=== PATIENT | female | born 1970 | race Two or more races ===

== ENCOUNTER → 2018-01-31 | Outpatient (CLI) | payer BC ==
--- NOTE | 2018-01-31 16:18 | RADIOLOGY REPORT (SQ) ---
EXAM DESCRIPTION: NM HIDA SCAN WITH CCK COMPLETED DATE/TIME: 01/31/2018 4:03 pm REASON FOR STUDY: RUQ PAIN (R10.11) R10.11 RIGHT UPPER QUADRANT PAIN COMPARISON: ULTRASOUND RADIONUCLIDE AND DOSE: DOSAGE RADIONUCLIDE: 5.4 millicuries Tc99m Mebrofenin. DOSAGE CCK: 1.5 micrograms. DOSAGE MORPHINE: Not required. The route of agent administration: Intravenous TECHNIQUE: Serial imaging right upper quadrant up to 60 minutes following injection of radionuclide. CCK injected after gallbladder visualized. LIMITATIONS: None. FINDINGS: LIVER: Normal visualization without areas of photopenia. INTRAHEPATIC BILE DUCTS: Normal visualization. COMMON BILE DUCT: Normal dilatation. GALLBLADDER: Normal visualization. Calculated ejection fraction of 48%. Normal range is greater th an 35%. PHYSICAL RESPONSE: Patients presenting complaint was reproduced. OTHER: No other significant finding. IMPRESSION: NO CYSTIC OR COMMON DUCT OBSTRUCTION. NORMAL GALLBLADDER EJECTION FRACTION. POSITIVE FOR BILIARY DYSKINESIS. TECHNICAL DOCUMENTATION: JOB ID: [id number] [employer]- All Rights Reserved Reading location - IP/workstation name: [email or web address]
== END ==
LOC: RAD 12:55
PROVIDERS: ATTEND Family Medicine
DX: R10.11 Right upper quadrant pain (principal)
CPT/HCPCS: 78227; J2805; A9537; Q9969

== ENCOUNTER → 2018-01-31 | Outpatient (CLI) | payer BC ==
[2018-01-31 13:23] LABS: ABSOLUTE BASOPHILS # (AUTO) 0.1 10^3/uL (0.0-0.2); ABSOLUTE EOSINOPHILS # (AUTO) 0.3 10^3/uL (0.0-0.6); ABSOLUTE LYMPHOCYTES (AUTO) 2.3 10^3/uL (0.5-4.7); ABSOLUTE MONOCYTES (AUTO) 0.7 10^3/uL (0.1-1.4); BASOPHILS % (AUTO) 1.3 % (0-2); EOSINOPHILS % (AUTO) 4.5 % (0-6); HEMOGLOBIN 13.9 g/dL (12.0-15.5); LYMPHOCYTES % (AUTO) 31.3 % (13-45); MEAN CORPUSCULAR HGB CONC 33.1 g/dL (32.0-36.0); MEAN CORPUSCULAR VOLUME 85 fl (80-97); MONOCYTES % (AUTO) 9.2 % (3-13); PLATELET COUNT 422 10^3/uL (150-450); RED BLOOD COUNT 4.97 10^6/uL (3.72-5.28); RED CELL DISTRIBUTION WIDTH 14.7 % (11.5-14.0); SEGMENTED NEUTROPHILS % (AUTO) 53.7 % (42-78); TOTAL CELLS COUNTED % (AUTO) 100 %; WHITE BLOOD COUNT 7.5 10^3/uL (4.0-10.5)
[2018-01-31 13:53] LABS: ALANINE AMINOTRANSFERASE 44 U/L (9-52); ALBUMIN 4.2 g/dL (3.5-5.0); ALKALINE PHOSPHATASE 76 U/L (38-126); AMYLASE 68 U/L (30-110); ANION GAP 10 (5-19); ASPARTATE AMINO TRANSFERASE 36 U/L (14-36); BILIRUBIN,DIRECT 0.2 mg/dL (0.0-0.4); BILIRUBIN,TOTAL 0.6 mg/dL (0.2-1.3); BLOOD UREA NITROGEN 13 mg/dL (7-20); CALCIUM 9.7 mg/dL (8.4-10.2); CARBON DIOXIDE 30 mmol/L (22-30); CHLORIDE 102 mmol/L (98-107); GAMMA-GLUTAMYL TRANSFERASE 26 U/L (8-78); GLUCOSE 87 mg/dL (75-110); LIPASE 254.9 U/L (23-300); SODIUM 141.5 mmol/L (137-145); TOTAL PROTEIN 7.2 g/dL (6.3-8.2)
[2018-01-31 13:55] LABS: C-REACTIVE PROTEIN < 5.0 mg/L (<10.0)
[2018-01-31 14:02] LABS: ERYTHROCYTE SEDIMENTATION RATE 8 mm/hr (0-20)
[2018-02-04 13:53] LABS: HELICOBACTER PYLORI IGA AB <9.0 units (0.0-8.9); HELICOBACTER PYLORI IGG AB <0.80 (0.00-0.79); HELICOBACTER PYLORI IGM AB <9.0 units (0.0-8.9)
== END ==
LOC: OD 12:18
PROVIDERS: ATTEND Family Medicine
DX: R10.9 Unspecified abdominal pain (principal)
CPT/HCPCS: 36415; 80053; 82150; 82977; 83690; 85025; 85652; 86140; 86677

== ENCOUNTER 2020-06-06 08:08 | Day surgery (SDC) | payer BC ==
[~2020-06-06 08:08] MED LIST: PROPOFOL INJ 200 MG/20 ML VIAL IV ONE
--- NOTE | 2020-06-06 10:16 | Operative Report ---
Operative Report DATE OF SURGERY: 06/06/20 Operative Report: The risk, benefits and alternatives of the procedure including the risks of bleeding, perforation requiring surgery have been explained to the patient in detail and informed consent has been obtained. The patient is taken back to the endoscopy suite and placed in a left, lateral decubital position. Timeout was called. Propofol medication is administered. Rectal examination is done which did not reveal any masses, tears or fissures. An Olympus upper scope was introduced into the patient's rectum. Scope was then carefully advanced all the way to the cecum. Cecum was identified by the usual anatomical landmarks including the ileocecal valve as well as the appendiceal office. Photodocumentation is obtained. The scope was then sequentially pulled back via the various segments of the colon including the ascending colon, hepatic flexure, transverse colon, splenic flexure, descending colon and finally into the rectosigmoid portions of the colon. Retroflexion maneuvers performed. PREOPERATIVE DIAGNOSIS: Colorectal cancer screening POSTOPERATIVE DIAGNOSIS: Sigmoid colon polyp status post biopsy for removal OPERATION: Colonoscopy with biopsy SURGEON: JAI GOLDBERG ANESTHESIA: LMAC TISSUE REMOVED OR ALTERED: As noted above. COMPLICATIONS: None. ESTIMATED BLOOD LOSS: None. INTRAOPERATIVE FINDINGS: As noted above. PROCEDURE: Patient tolerated the procedure well. No immediate postprocedure complications are noted. Patient is discharged in good condition. Discharge date 06/06/2020. Discharge diet: Regular. Discharge activity: Regular. 2 to 3-week follow-up to discuss findings. Patient is instructed to call the office or proceed to the emergency room should there be any further problems or questions. 5-year surveillance colonoscopy
[2020-06-06] MEDS ORDERED: PROPOFOL INJ 200 MG/20 ML VIAL IV ONE (10:26)
[2020-06-06 10:40] VITALS: BP 123/70
== END 2020-06-06 11:00 | disposition home or self-care (01) ==
LOC: END 08:08
PROVIDERS: ATTEND Internal Medicine Gastroenterology
DX: K63.5 Polyp of colon (principal); K92.1 Melena; Z86.010 Personal history of colon polyps; I12.9 Hypertensive chronic kidney disease with stage 1 through stage 4 chronic kidney disease, or unspecified chronic kidney disease; E11.22 Type 2 diabetes mellitus with diabetic chronic kidney disease; N18.9 Chronic kidney disease, unspecified; Z79.899 Other long term (current) drug therapy; Z03.818 Encounter for observation for suspected exposure to other biological agents ruled out
CPT/HCPCS: 45380; 87635; 88305 ×2; J2704; C9803; 812